=== PATIENT | male | born 1950 | race Caucasian/White ===

== ENCOUNTER → 2018-05-25 | Outpatient (RCR) | payer OTHER, MEDICARE | END | disposition home or self-care (01) | LOC: ONC 04-27 16:46 | PROVIDERS: ATTEND Radiology Radiation Oncology | DX: C61 Malignant neoplasm of prostate (principal) | CPT/HCPCS: 99204 ==

== ENCOUNTER 2018-10-13 09:50 | Outpatient (RCR) | payer OTHER, MEDICARE ==
[2018-10-28] MEDS ORDERED: LISI-556 PO (13:31)
[2018-10-28] MEDS ORDERED: DOXA4TAB2 PO (13:31)
[2018-10-28] MEDS ORDERED: INSU100V6 SQ (13:31)
[2018-10-28] MEDS ORDERED: ROSU10TA PO (13:31)
[2018-10-28] MEDS ORDERED: METF-397 PO (13:31)
== END 2018-11-22 | disposition home or self-care (01) ==
LOC: ONC 09:50
PROVIDERS: ATTEND Radiology Radiation Oncology
DX: Z51.0 Encounter for antineoplastic radiation therapy (principal); C61 Malignant neoplasm of prostate
CPT/HCPCS: 76873; 77331

== ENCOUNTER 2018-10-28 05:40 | Outpatient (CLI) | payer OTHER, MEDICARE ==
[~2018-10-28] VITALS: Ht 177.8 cm; Wt 79.8 kg
[2018-10-28] MEDS ORDERED: DOXA4TAB2 PO (13:31)
[2018-10-28] MEDS ORDERED: LISI-556 PO (13:31)
[2018-10-28] MEDS ORDERED: METF-397 PO (13:31)
[2018-10-28] MEDS ORDERED: ROSU10TA PO (13:31)
[2018-10-28] MEDS ORDERED: INSU100V6 SQ (13:31)
== END 2018-10-28 13:52 | disposition home or self-care (01) ==
LOC: PREOP 05:40
PROVIDERS: ATTEND Specialist
DX: Z01.818 Encounter for other preprocedural examination (principal)

== ENCOUNTER 2018-12-03 05:30 | Outpatient (CLI) | payer OTHER, MEDICARE ==
[~2018-12-03] VITALS: Ht 177.8 cm; Wt 79.8 kg
[~2018-12-03 05:30] MED LIST: DOXA4TAB2 PO; INSU100V6 SQ; LISI-556 PO; METF-397 PO; ROSU10TA PO
[2018-12-03] MEDS ORDERED: INSU100I34 SQ (12:54)
== END 2018-12-03 13:11 | disposition home or self-care (01) ==
LOC: PREOP 05:30
PROVIDERS: ATTEND Specialist
DX: Z01.818 Encounter for other preprocedural examination (principal)

== ENCOUNTER 2018-12-08 11:17 | Day surgery (SDC) | payer OTHER, MEDICARE ==
[~2018-12-08] VITALS: Ht 177.8 cm; Wt 79.8 kg
[~2018-12-08 11:17] MED LIST changes: +INSU100I34 SQ
--- NOTE | 2018-12-08 12:08 | Progress Note-Pre Operative ---
Pre-Operative Progress Note H&P Reviewed The H&P was reviewed, patient examined and no changes noted. Date Seen by Provider: Dec 08, 2018 Time Seen by Provider: 12:07 Date H&P Reviewed: Dec 08, 2018 Time H&P Reviewed: 12:07 Pre-Operative Diagnosis: Prostate cancer cT2b, PSA 5.37, [place] 9 (4+5) - on ADT JUSTICE MAGALLANES MD Dec 08, 2018 12:08
[2018-12-08 12:10] VITALS: BP 135/80
--- NOTE | 2018-12-08 12:12 | Discharge Inst-Simple/Standard ---
Discharge Inst-Standard Discharge Medications New, Converted or Re-Newed RX: RX Given to Pt/Family Patient Instructions/Follow Up Plan of Care/Instructions/FU: 1)Follow up at [facility] for one month post implant scan 01/05/19 at 11:00 a.m. 2)Follow up with Dr. Thomas on 01/06/19 at 9:30 a.m. Activity as Tolerated: Yes Discharge Diet: No Restrictions Other Inst to Patient Please instruct pt/ on franco catheter removal. To be removed Sunday 12/10 or Wednesday 12/[address] Thomas's instruction. JUSTICE MAGALLANES MD Dec 08, 2018 12:12
[2018-12-08] MEDS ORDERED: CIPR-226 PO (12:14)
[2018-12-08] MEDS ORDERED: ACET1TAB43 PO (12:14)
[2018-12-08] MEDS ORDERED: BACITRACIN OINTMENT 28 GM TUBE ONE (12:16)
[2018-12-08] MEDS ORDERED: LEVOFLOXACIN 500 MG/100 ML IV 100 ML ONE (12:27)
[2018-12-08] MEDS ORDERED: LACTATED RINGERS 1,000 ML IV PRN (12:28)
[2018-12-08] MEDS ORDERED: LEVOFLOXACIN 500 MG/100 ML IV 100 ML IV ONE (12:30)
[2018-12-08] MEDS ORDERED: proPOfol 200 MG/20 ML (DIPRIVAN) VIAL IV ONE (12:39)
[2018-12-08] MEDS ORDERED: MIDAZOLAM 2 MG/2 ML (VERSED) VIAL ONE (12:39)
[2018-12-08] MEDS ORDERED: ONDANSETRON 4 MG/2 ML (SDV) Z0FRAN ONE (12:39)
[2018-12-08] MEDS ORDERED: fentaNYL INJECTION 100 MCG/2 ML AMP ONE (12:39)
[2018-12-08] MEDS ORDERED: LIDOCAINE PF 2% 5 ML (XYLOCAINE) VIAL ONE (12:39)
[2018-12-08] MEDS ORDERED: SEVOFLURANE (ULTANE) 15 ML INHAL SOLN ONE ×5 (12:41→15:16)
[2018-12-08] MEDS ORDERED: IOPAMIDOL 61% 30 ML (ISOVUE 300) VIAL IV ONE (14:02)
[2018-12-08] MEDS ORDERED: morphine INJ 10 MG/ML 1ML (SYR OR VIAL) IVP ONE (14:30)
[2018-12-08] MEDS ORDERED: ONDANSETRON 4 MG/2 ML (SDV) Z0FRAN IVP PRN ×2 (14:30→15:45)
[2018-12-08] MEDS ORDERED: MEPERIDINE (DEMEROL) INJ 50 MG/ML IVP ONE (14:30)
[2018-12-08] MEDS ORDERED: ROCURONIUM 10 MG/ML 5 ML SYRINGE IV ONE (14:35)
[2018-12-08] MEDS ORDERED: PHENYLEPHRINE 100 MCG/ML 10 ML (ANESTHESIA) SYR ONE (14:56)
[2018-12-08] MEDS ORDERED: NEOSTIGMINE 1 MG/ML 5 ML SYRINGE ONE (15:09)
[2018-12-08] MEDS ORDERED: GLYCOPYRROLATE 0.2 MG/ML (ROBINUL) 2 ML VIAL ONE ×2 (15:09)
[2018-12-08] MEDS ORDERED: HYDROmorphone 2 MG/ML VIAL (DILAUDID) IV ONE (15:45)
--- NOTE | 2018-12-08 15:46 | Progress Note-Post Operative ---
Post-Operative Progess Note Surgeon (s)/Card Room Manager (s) Surgeon JUSTICE MAGALLANES MD Card Room Manager: Lawanda KEE MD Pre-Operative Diagnosis Prostate cancer cT2b, PSA 5.37, [place] 9 (4+5) - on ADT Post-Operative Diagnosis Same as pre-op Procedure & Operative Findings Date of Procedure 12/08/18 Procedure Performed/Findings 1) 85 Gy Cesium 131 permanent prostate seed implant 2) Injection of bio-degradable hydrogel prostate-rectal spacer utilizing the SpaceOAR system 3) Cystogram Prostate volume 51.2 cc Anesthesia Type General Estimated Blood Loss Estimated blood loss (mL): Minimal Specimens/Packing Specimens Removed None Packing: None JUSTICE MAGALLANES MD Dec 08, 2018 15:46
--- NOTE | 2018-12-08 15:50 | Diagnostic Imaging Report ---
INDICATION: Fluoroscopy during prostate brachytherapy. TIME OF EXAM: 03:18 p.m. FINDINGS: Fluoroscopy was provided for Dr. Jauregui during prostate brachytherapy. 9 seconds of fluoroscopy was utilized. Images demonstrate multiple radiation seed implants within the prostate gland. IMPRESSION: Fluoroscopy for brachytherapy. Dictated by: Dictated on workstation # [id number]
[2018-12-08 16:25] VITALS: BP 131/72
[2018-12-08 16:55] VITALS: BP 136/61
[2018-12-08 17:25] VITALS: BP 128/62
[2018-12-08 17:40] VITALS: BP 128/62
--- NOTE | 2018-12-08 19:40 | Anesthesia-General Post-Op ---
General Patient Condition Mental Status/LOC: Same as Preop Cardiovascular: Satisfactory Nausea/Vomiting: Absent Respiratory: Satisfactory Pain: Controlled Complications: Absent Post Op Complications Complications None Follow Up Care/Instructions Patient Instructions None needed. Anesthesia/Patient Condition Patient Condition Patient is doing well, no complaints, stable vital signs, no apparent adverse anesthesia problems. No complications reported per nursing. D/C home per [facility] [place] Criteria: Yes MAINE ELIAS CRNA Dec 08, 2018 19:40
== END 2018-12-08 17:40 | disposition home or self-care (01) ==
LOC: SDC 11:17
PROVIDERS: ATTEND Specialist
DX: C61 Malignant neoplasm of prostate (principal); Z11.2 Encounter for screening for other bacterial diseases; E11.40 Type 2 diabetes mellitus with diabetic neuropathy, unspecified; E78.00 Pure hypercholesterolemia, unspecified; I10 Essential (primary) hypertension; E78.5 Hyperlipidemia, unspecified; Z87.442 Personal history of urinary calculi; Z88.2 Allergy status to sulfonamides; F17.210 Nicotine dependence, cigarettes, uncomplicated; Z79.4 Long term (current) use of insulin; Z79.899 Other long term (current) drug therapy
CPT/HCPCS: 76965; 77290; 77318; 77332; 77370; 77470; 77778; 82962; 87081

== ENCOUNTER 2019-01-05 10:28 | Outpatient (RCR) | payer OTHER, MEDICARE ==
[~2019-01-05 10:28] MED LIST changes: +ACET1TAB43 PO; +CIPR-226 PO; -ROSU10TA PO; +ROSU10TA22 PO
[2019-01-05 11:24] LABS: BUN/CREATININE RATIO 16; CREATININE SERUM 0.93 MG/DL (0.60-1.30); GFR ESTIMATED > 60
== END 2019-04-05 | disposition home or self-care (01) ==
LOC: ONC 10:28
PROVIDERS: ATTEND Radiology Radiation Oncology
DX: C61 Malignant neoplasm of prostate (principal)
CPT/HCPCS: 36415; 77290; 77295; 82565; 84520